=== PATIENT | male | born 1985 | race Caucasian/White ===

== ENCOUNTER 2017-11-04 06:03 | Emergency (ER) | payer OTHER, BC, SELFPAY ==
[2017-11-04 06:13] VITALS: BP 138/80; PULSE 81; RESP 15; TEMP 36.7; O2SAT 100
--- NOTE | 2017-11-04 06:45 | W.ED.GENAD ---
Discharge Plan Disposition Patient Disposition: HOME Condition: Good Discharge Details Chief Complaint: RespSymp Clinical Impression: Sinusitis, acute Primary Care Provider: [facility] Provider: Prashanth Infante and New Rx's Prescriptions: New acetaminophen [Tylenol Extra Strength] 500 mg tablet 1,000 mg PO Q6H PRN (Reason: fever or pain) Qty: 30 RF: 0 pseudoephedrine-guaifenesin [Mucinex D Maximum Strength] 120-1,200 mg tablet extended release 12 hr 1 tab PO Q12H PRN (Reason: cold symptoms) Qty: 30 RF: 0 fluticasone [Flonase Allergy Relief] 50 mcg/actuation spray,suspension 2 spray TONE DAILY Qty: 9.9 RF: 0 Continue folic acid 1 mg Tablet 1 mg PO DAILY RF: 0 lithium carbonate 300 mg Tablet 900 mg PO BID RF: 0 lamotrigine 100 mg Tablet 100 mg PO BID RF: 0 lurasidone [Latuda] 20 mg Tablet 20 mg PO DAILY RF: 0 Discharge Instructions Instructions: Sinusitis (ED) Additional Instructions: This most likely is viral sinusitis in nature. It is okay to use the medications listed including acetaminophen, fluticasone, pseudoephedrine and guaifenesin. It is important to rest and stay hydrated. Follow-up with primary care in the next 7-10 days if not better. If getting significantly worse with lethargy, confusion, severe headache, persistent high fevers, purulent or bloody nasal discharge return to ED. Referrals: Primary Care Provider [Outside] Medical Decision Making Patient with URI/sinusitis that is most likely viral in nature. Symptoms ongoing for 5 days. In reviewing his medications and doing an interaction check, he is fine taking Flonase nasal spray, acetaminophen, Mucinex D. He must stay away from nonsteroidals. Would not start antibiotics at this point as it is most likely viral and will resolve in 10-14 days. He should follow-up with primary care towards the end of the week if he is not getting better for consideration of antibiotic therapy at that point. He should rest and stay hydrated. Symptomatic management with medications described above. Return to ED for lethargy, altered mental status, severe headache, persistent high fever, purulent or bloody nasal discharge. HPI General Mode of arrival: ambulatory. Date/Time Provider Initiated Documentation: 11/04/17 06:27. Limitations to Documentation: no limitations. Information obtained by: patient. HPI Narrative: Patient presents to ED with sinus pressure and headache. Patient has had symptoms for 5 days now. He has had no fever that he is aware of. He has a cough and a little bit of a sore throat. He has a lot of congestion and sinus pressure. He was unable to sleep last night because of the pain and discomfort. He has used Tylenol for the pain. He is unsure what else he could take because of his psychiatric medications. He decided to come in for evaluation this morning. Related Data Home Medications Medication Instructions Recorded Confirmed acetaminophen [Tylenol Extra 1,000 mg PO Q6H PRN #30 tab 11/04/17 Strength] fluticasone [Flonase Allergy 2 spray TONE DAILY #9.9 gm 11/04/17 Relief] folic acid 1 mg PO DAILY 11/04/17 11/04/17 lamotrigine 100 mg PO BID 11/04/17 11/04/17 lithium carbonate 900 mg PO BID 11/04/17 11/04/17 lurasidone [Latuda] 20 mg PO DAILY 11/04/17 11/04/17 pseudoephedrine-guaifenesin 1 tab PO Q12H PRN #30 tab 11/04/17 [Mucinex D Maximum Strength] Previous Rx's Medication Instructions Recorded acetaminophen [Tylenol Extra 1,000 mg PO Q6H PRN #30 tab 11/04/17 Strength] fluticasone [Flonase Allergy 2 spray TONE DAILY #9.9 gm 11/04/17 Relief] pseudoephedrine-guaifenesin 1 tab PO Q12H PRN #30 tab 11/04/17 [Mucinex D Maximum Strength] Allergies Allergy/AdvReac Type Severity Reaction Status Date / Time No Known Allergies Allergy Unverified 11/04/17 06:19 General Stated Complaint: RespSymp PAPITO: 4 Review of Systems Constitutional Denies chills, Denies fever(s), Denies headache(s), Denies malaise and Denies weakness Eyes Denies change in vision, Denies eye discharge, Denies irritation and Denies eye pain ENT Denies vertigo, Denies otalgia, Reports facial pain, Denies headache(s), Denies epistaxis, Reports nasal congestion, Denies neck pain, Reports sinus pain, Reports sinus pressure and Reports sore throat Cardiovascular Denies chest pain, Denies lightheadedness, Denies palpitations and Denies dyspnea Respiratory Reports cough and Denies dyspnea Musculoskeletal Denies neck pain and Denies numbness Neurologic Denies vertigo, Denies headache(s), Denies numbness and Denies weakness Endocrine Denies palpitations [facility] Medical History Bipolar disorder (Chronic) Social History Smoking/Tobacco Use Status: Current-Occasional Exam Const General: cooperative, comfortable, no acute distress and well developed Nutritional Appearance: well nourished Orientation: alert and oriented x3 HENMT Head: normocephalic and atraumatic Ears: external ears normal and TM's normal bilaterally General nose exam: external nose normal and no nasal discharge Face and sinus: no erythema and sinus tenderness Mouth: oral mucosae normal Throat: tonsils normal, uvula midline, posterior oropharynx abnormal cobblestoning; no erythema and no exudates and no uvular edema Eyes Conjunctivae: conjunctivae normal Sclera: sclerae normal Pupils: PERRL EOM: EOM intact bilaterally Neck Neck: normal visual inspection, no lymphadenopathy, trachea midline and supple Resp Effort & Inspection: normal respiratory effort Auscultation: clear to auscultation bilaterally Cardio Rate: regular rate Rhythm: regular rhythm Heart Sounds: S1 normal and S2 normal Neuro General: alert, oriented x3, gait normal, no focal motor deficits and CN's II-XI intact bilaterally Sensory Exam: no sensory deficits noted Course Vital Signs Temperature 98.1 F 11/04/17 06:13 Pulse 81 11/04/17 06:13 Respiratory Rate 15 11/04/17 06:13 Blood Pressure 138/80 11/04/17 06:13 Pulse Oximetry 100 11/04/17 06:13 Temperature 98.1 F 11/04/17 06:13 Temperature Source Tympanic 11/04/17 06:13 Pulse 81 11/04/17 06:13 Respiratory Rate 15 11/04/17 06:13 Respiratory Effort Non-Labored 11/04/17 06:22 Respiratory Depth Normal 11/04/17 06:22 Blood Pressure 138/80 11/04/17 06:13 Blood Pressure Position Sitting 11/04/17 06:13 Pulse Oximetry 100 11/04/17 06:13 Oxygen Delivery Method Room Air 11/04/17 06:13 Oxygen Flow Rate 0 11/04/17 06:13 Pain Level 4 11/04/17 06:13
== END 2017-11-04 06:57 | disposition home or self-care (01) ==
PROVIDERS: Emergency Provider Emergency Medicine
DX: J01.90 Acute sinusitis, unspecified (principal)
CPT/HCPCS: 99283